=== PATIENT | male | born 1955 | race Two or more races ===

== ENCOUNTER 2019-01-21 12:40 | Emergency (ER) | payer OTHER ==
[~2019-01-21] VITALS: Ht 177.8 cm; Wt 74.8 kg
[2019-01-21 12:40] VITALS: BP_SYST 131
--- NOTE | 2019-01-21 13:00 | NUR ---
Patient to ER bed 1 to gown for evaluation. Side rails up. Assumed care.
--- NOTE | 2019-01-21 13:05 | NUR ---
Patient came to the ER via ambulance with complaints of chest pain. The patient advised that he has pain 4/10 epigastric pain. The patient vomitted and there was blood with his vomit. Patient vitals are 91 117/75 98% and 15. Patient is AOx4 and has at bedside. They are with [facility]enez.
--- NOTE | 2019-01-21 13:20 | NUR ---
ER Dr. Mosher at bedside examining patient.
[2019-01-21] MEDS ORDERED: PANTOPRAZOLE SODIUM 40 MG/VIAL (PROTONIX) IVP ONE (13:45)
[2019-01-21 14:21] LABS: BASOPHILS % (AUTO) 0.6 % (0.0-2.0); EOSINOPHILS # (AUTO) 0.2 K/uL (0.0-0.4); EOSINOPHILS % (AUTO) 3.6 % (0.0-4.0); HEMATOCRIT 40.5 % (36-54); HEMOGLOBIN 13.2 g/dL (14.0-18.0); LYMPHOCYTES # (AUTO) 1.4 K/uL (1.0-5.5); LYMPHOCYTES % (AUTO) 22.2 % (20.5-51.5); MEAN CORPUSCULAR HEMOGLOBIN 26 pg (27-31); MEAN CORPUSCULAR HGB CONC 33 % (32-36); MEAN CORPUSCULAR VOLUME 79 fL (79.0-98.0); MONOCYTES # (AUTO) 0.5 K/uL (0.0-1.0); MONOCYTES % (AUTO) 7.8 % (1.7-9.3); NEUTROPHILS # (AUTO) 4.1 K/uL (1.8-7.7); NEUTROPHILS % (AUTO) 65.8 % (40.0-70.0); PLATELET COUNT (AUTO) 218 K/uL (130-430); RED BLOOD CELL COUNT(AUTO) 5.11 MIL/uL (4.2-6.2); RED CELL DISTRIBUTION WIDTH 14.2 % (9.0-15.0); WHITE BLOOD COUNT (AUTO) 6.2 K/uL (4.8-10.8)
[2019-01-21 14:24] LABS: CALCIUM 8.7 mg/dL (8.4-11.0); CREATININE 0.87 mg/dL (0.55-1.30); POTASSIUM 3.7 mmol/L (3.5-5.1)
[2019-01-21 14:30] LABS: ALBUMIN 3.7 g/dL (3.4-4.8); TOTAL BILIRUBIN 0.5 mg/dL (0.0-1.0)
--- NOTE | 2019-01-21 14:45 | NUR ---
Patient resting quietly. No acute distress noted. Vital signs within normal range.
[2019-01-21 15:25] VITALS: BP_SYST 131
== END 2019-01-21 15:23 | disposition home or self-care (01) ==
LOC: SED 12:40
DX: R07.89 Other chest pain (principal); K22.6 Gastro-esophageal laceration-hemorrhage syndrome; E11.9 Type 2 diabetes mellitus without complications; I48.20 Chronic atrial fibrillation, unspecified; E78.5 Hyperlipidemia, unspecified; Z88.0 Allergy status to penicillin
CPT/HCPCS: 36415; 71045; 80053; 82550; 83880; 84484; 85025; 93005; 96374; 99284; C9113